=== PATIENT | male | born 1980 | race Caucasian/White ===

== ENCOUNTER 2020-04-30 12:55 | Emergency (ER) | payer SELFPAY ==
[~2020-04-30] VITALS: Ht 180.3 cm; Wt 70.8 kg
--- NOTE | 2020-04-30 13:15 | NUR ---
[id number], FROM STREET, DRANK A FEW BOTTLE OF WINE, + ETOH SMELL. PATIENT A/OX3, RESPONSIVE VERBALLY, NO DISTRESS NOTED, DISHEVELED LOOKING. PATIENT ATTACHED TO THE IMPORT/EXPORT FREIGHT FORWARDER.
[2020-04-30 14:29] LABS: BASOPHILS % (AUTO) 0.7 % (0.0-2.0); EOSINOPHILS % (AUTO) 3.5 % (0.0-6.0); HEMATOCRIT 44 % (39-51); HEMOGLOBIN 14.6 g/dL (13.5-17.5); LYMPHOCYTES # (AUTO) 2.2 /CMM (0.8-4.8); LYMPHOCYTES % (AUTO) 33.8 % (20.0-44.0); MEAN CORPUSCULAR HGB CONC 33 g/dl (31.0-36.0); MEAN CORPUSCULAR VOLUME 98 fL (80-96); MONOCYTES # (AUTO) 0.2 /CMM (0.1-1.30); MONOCYTES % (AUTO) 2.7 % (2.0-12.0); NEUTROPHILS # (AUTO) 3.9 /CMM (1.8-8.9); NEUTROPHILS % (AUTO) 59.3 % (43.0-81.0); PLATELET COUNT (AUTO) 249 /CMM (150-450); RED BLOOD CELL COUNT(AUTO) 4.52 MIL/uL (4.5-6.0); WHITE BLOOD COUNT (AUTO) 6.6 K/uL (4.3-11.0)
[2020-04-30 14:38] LABS: CALCIUM, SERUM 8.2 mg/dL (8.5-10.1); CREATININE 0.6 mg/dL (0.6-1.3); POTASSIUM 4.3 mmol/L (3.5-5.1)
[2020-04-30] MEDS: IV NS 0.9% 1,000 ML BAG IV ONE (14:38)
[2020-04-30 14:45] LABS: ALBUMIN 3.4 g/dL (3.4-5.0); BILIRUBIN,DIRECT 0.2 mg/dL (0.0-0.2); BILIRUBIN,TOTAL 0.3 mg/dL (0.2-1.0); TOTAL PROTEIN, SERUM 7.7 g/dL (6.4-8.2)
--- NOTE | 2020-04-30 14:53 | NUR ---
PATIENT NOTED AMBULATING IN THE HALLWAY WITH A WHITE SHEET AND DROPS OF BLOOD ON THE SHEET, PATIENT PULLED OUT IV LINE. INSTRUCTED TO GO BACK TO BED, BUT PATIENT REFUSED.
--- NOTE | 2020-04-30 14:55 | NUR ---
PATIENT WALKING RAPIDLY ACCROSS NURSE'S STATION WHILE SECURITY AND EMT TELLING HIM TO GO BACK TO BED.OTHER NURSING PERSONNEL TRIED TO PURSUADE HIM TO STOP AND GO BACK TO HIS BED BUT HE WALKED FASTER TOWARDS THE DOOR.SECURITY ACCOMPANIED BY EMT AND NURSING STAFF TRIED TO GO AFTER HIM ACCROSS THE PARKING LOT BUT PATIENT GOT AWAY.
--- NOTE | 2020-04-30 15:00 | NUR ---
[facility] CALLED FOR ASSISTANCE IN LOOKING FOR THE PATIENT
--- NOTE | 2020-04-30 15:29 | NUR ---
CALLED [facility] [phone] [employer]TER[employer] INSPECTOR [phone]
[2020-04-30 16:31] VITALS: BP 121/74
== END 2020-04-30 16:32 | disposition left against medical advice (07) ==
LOC: ER 12:58
DX: F10.10 Alcohol abuse, uncomplicated (principal); R40.4 Transient alteration of awareness; Z59.0 Homelessness; Z86.19 Personal history of other infectious and parasitic diseases; Y90.8 Blood alcohol level of 240 mg/100 ml or more
CPT/HCPCS: 36415; 70450; 80048; 80076; 80307; 85025; 85730; 96360; 99284; J7030; G0480